=== PATIENT | male | born 1985 | race Caucasian/White ===

== ENCOUNTER 2024-01-07 23:11 | Emergency (ER) | payer BC ==
[2024-01-08] MEDS: Cephalexin 500 MG Cap PO ONE (00:57)
[2024-01-08] MEDS: Lidocaine 1% 20 ML MDV ONE (00:57)
== END 2024-01-08 01:26 | disposition home or self-care (01) ==
LOC: JD.ED 23:11
DX: S61.214A Laceration without foreign body of right ring finger without damage to nail, initial encounter (principal); Z79.899 Other long term (current) drug therapy; W26.8XXA Contact with other sharp object(s), not elsewhere classified, initial encounter
CPT/HCPCS: 12001; 99282; A9270-GY; J3490